=== PATIENT | female | born 1965 | race Caucasian/White ===

== ENCOUNTER 2024-10-06 04:07 | Observation (INO) ==
[2024-10-06] MEDS: MAGNESIUM SULFATE 50% INJ VIAL 2 G in NS 100 ML IV 100 ML IV PRN (04:30)
[2024-10-06] MEDS: SOLU-Medrol 125 MG VIAL IVP ONE (04:30)
[2024-10-06] MEDS: DUONEB 0.5 MG/3 MG (3 mL) NEB ONE ×3 (04:31→05:35)
[2024-10-06] MEDS: ROBITUSSIN DM PO ONE (04:43)
[2024-10-06] MEDS: TESSALON PERLES PO ONE ×2 (04:43→09:43)
--- NOTE | 2024-10-06 04:48 | RAD ---
PROCEDURE: Chest X-ray 1 View. HISTORY: coughing; . TECHNIQUE: AP view. COMPARISON: None . TECHNICAL QUALITY: Satisfactory. FINDINGS: Normal-sized heart with previous sternotomy and pacemaker on the left. Mediastinum and hilar regions show no masses or lymphadenopathy. Normal central vascularity. No pulmonary consolidation, masses, pleural fluid, or pneumothorax. No acute bony abnormality. IMPRESSION: No evidence of active cardiopulmonary disease. THIS IS AN ELECTRONICALLY VERIFIED FINAL REPORT 10/06/2024 4:44 AM - Electronically signed by Gonzalo Baxter MD
--- NOTE | 2024-10-06 05:16 | DR.SOBA ---
HPI Time Seen Time Seen by Provider: 10/06/24 04:19 Primary Care Physician Primary Care Physician: OLI HPI Comment HPI Comment: Pt was seen yesterday for shortness of breath .Was diagnosed with COPD exacerbation .Was given steroids, zithromax and was advised to use albuterol inhaler at least 3 x per day .Pt returns this morning that she could not find her inhaler. She was unable to have her prescription filled .Her cough worsened and she began to experience wheezing and increased shortness of breath and return back to the ER Has no fever or chills Complaints Chief Complaint Doctors Comments: SHORTNESS OF BREATH Chief Complaint:: PATIENT C/O SHORTNESS OF BREATH. PATIENT STATES SHE HAS HAD COUGH AND CONGESTIONS FOR THE PAST FEW DAYS. PATIENT ALSO STATES SHE HAS HAD RICKEY RRHEA. PATIENT WAS RECENTLY SEEN IN ED FOR SME SYMPTOMS. TONIGHT SHE IS HAVING INCREASINGLY SHORTNESS OF BREATH. COVID-19 Coronavirus risk:travel/contact w/high risk person: No Has patient experienced Coronavirus symptoms: No Coronavirus symptoms experienced: Coughing and Shortness of Breath Reviewed Nurses Notes Reviewed: Yes Source History Provided: Patient Mode of Arrival Mode of Arrival: Ambulatory Timing Onset of Chief Complaint: 10/04/24 PMH PMH Past Medical History: Yes Past Medical History: CVA, Hypertension and MA Past Surgical History: Yes Surgical History: Angioplasty/Stents and Past Surgical History Comment: PACE [employer]ER Family History History of Family Medical Conditions: Yes Family Medical History: Diabetes Mellitus and MA Social History Does patient currently use any type of tobacco product: Yes Have you used tobacco products in the last 12 months: Yes Type of Tobacco Use: Cigarettes Does any household member use tobacco: Yes Alcohol Use: None Do you use any recreational Drugs:: Yes (marijuana) Lives With: Family Lives Where: Home Travel Risk Coronavirus risk:travel/contact w/high risk person: No Has patient experienced Coronavirus symptoms: No Infectious screening In the last 2 months have you had wt loss of >10#?: NO Have you had fever, night sweats or hemotysis?: No Have you traveled outside the country in the last 6 months?: No Isolation: Standard ROS Review of Systems Constitutional: Fatigue Eyes: No Symptoms Reported ENTM: No Symptoms Reported Respiratoy: Non-Productive Cough and Short of Breath Cardiovascular: No Symptoms Reported Gastrointestinal/Abdominal: No Symptoms Reported Genitourinary: No Symptoms Reported Neurological: No Symptoms Reported Musculoskeletal: No Symptoms Reported Integumentary: No Symptoms Reported Hematologic/Lymphatic: No Symptoms Reported PE Vital Signs Vitals: Vital Signs Temperature 97.5 F Pulse Rate 93 Pulse Rate 83 Pulse Rate 81 Pulse Rate 79 Pulse Rate 83 Pulse Rate 85 Pulse Rate 94 Pulse Rate 83 Pulse Rate 100 Pulse Rate 102 Respiratory Rate 44 Respiratory Rate 33 Respiratory Rate 36 Respiratory Rate 26 Respiratory Rate 25 Respiratory Rate 43 Respiratory Rate 45 Respiratory Rate 35 Respiratory Rate 28 Blood Pressure 162/77 Blood Pressure 171/84 Blood Pressure 155/83 Blood Pressure 111/86 Blood Pressure 186/103 O2 Sat by Pulse Oximetry 93 O2 Sat by Pulse Oximetry 100 O2 Sat by Pulse Oximetry 92 O2 Sat by Pulse Oximetry 94 O2 Sat by Pulse Oximetry 94 O2 Sat by Pulse Oximetry 94 O2 Sat by Pulse Oximetry 98 O2 Sat by Pulse Oximetry 98 O2 Sat by Pulse Oximetry 94 O2 Sat by Pulse Oximetry 95 General Limitations: No Limitations General Appearance: Alert, Anxious and In Distress Head Head Exam: Normal Inspection, Atraumatic and Normocephalic Eyes Eye exam: Normal Appearance, PERRL and EOMI ENT ENT Exam: Mucous Membranes Moist Neck Neck Exam: Normal Inspection Respiratory Respiratory Exam: Normal Lung Sounds Bilat and Prolonged Expiratory Phase Respiratory Exam: Bilateral: Wheezing Cardiovascular Cardiovascular Exam: +S1 and +S2 Abdominal Exam Abdominal Exam: Normal Inspection, Normal Bowel Sounds and Soft Extremities Extremities Exam: Normal Inspection Back Back Exam: Normal Inspection Neurologic Neurological Exam: Alert Skin Skin Exam: Normal Color MDM Additional Information Obtained Additional Information Obtained From: Old Records Differential Diagnosis Differential Diagnosis: Pneumonia Differential Diagnosis Comment:: copd exacerbation COURSE Treatment Treatment: duoneb,IV magnesium sulphate , tessalon perle ,robitussin DM ,IV solumederol cxr Reevaluation 1st: Unchanged ROR Labs Reviewed 10/06/24 06:44 10/06/24 06:44 XRAY X-ray Results: no pneumonia Opioid Opioid Risk Tool Age (Justin box if 16-45): No History of Preadolescent Sexual Abuse: No Total: 0 Total Score Risk Category: Low Risk Copyright: Denny ESPINOSA predicting aberrant behaviors Discharge Plan Diagnosis Discharge Problem: Acute exacerbation of chronic obstructive pulmonary disease, Tobacco user Discharge Plan Patient Disposition: 09 ADMITTED INPATIENT Condition: Stable Prescriptions: No Action azithromycin [Zithromax] 250 mg tablet 250 mg PO QDAY 4 Days Qty: 4 0RF benzonatate 100 mg capsule 100 mg PO TID Qty: 30 0RF prednisone 20 mg tablet 40 mg PO QDAY Qty: 10 0RF Health Concerns: Post Hospitalization: new medications and changes needed to prevent readmission or further decline. Pt educated and given instructions on all concerns. Plan of Treatment: Continue with present treatment and follow up plan. Pt is to keep follow up appointment as instructed and take medications as ordered. Orders to Discharge Patient Discharge Orders: Transfer (Routine); Ordered 10/06/24 Ordered By: Tiago Mann Follow ups/Referrals Follow ups/Referrals: [facility],None [Primary Care Provider] - 3 days Instructions Stand Alone Forms: Find Help Web Site, Post Hospital Follow Up Care ADDITIONAL NOTES Additional Notes Additional Notes: continued to wheeze with shortness of breath oxygen sat over 95% room air CXR no pneumonia ,had IV Solumederol 125 mg ,IV magnesium sulphate and neb treatment with duoneb x 2 some improvement but not major .spoke with Dr Willoughby .Agreed to admit patient
[2024-10-06 06:54] LABS: BASOPHILS % (AUTO) 0.4 % (0.2-1.0); EOSINOPHILS % (AUTO) 0.1 % (0.9-2.9); HEMATOCRIT 40.5 % (36.0-47.0); HEMOGLOBIN 14.3 g/dL (12.0-16.0); LYMPHOCYTES # (AUTO) 0.7 X10^3/uL (1.3-2.9); LYMPHOCYTES % (AUTO) 12.5 % (21.0-51.0); MEAN CORPUSCULAR HEMOGLOBIN 32.9 pg (27.0-34.0); MEAN CORPUSCULAR HGB CONC 35.2 g/dL (33.0-35.0); MEAN CORPUSCULAR VOLUME 93.3 fL (80.0-100.0); MEAN PLATELET VOLUME 7.3 fL (7.4-11.0); MONOCYTES # (AUTO) 0.1 x10^3/uL (0.3-0.8); MONOCYTES % (AUTO) 1.9 % (0.0-13.0); NEUTROPHILS # (AUTO) 4.4 x10^3/uL (2.2-4.8); NEUTROPHILS % (AUTO) 85.1 % (42.0-75.0); PLATELET COUNT 189 X10^3/uL (150.0-450.0); RED BLOOD COUNT 4.34 X10^6/uL (3.5-5.4); WHITE BLOOD COUNT 5.2 X10^3/uL (3.6-10.0)
[2024-10-06 07:07] LABS: ALANINE AMINOTRANSFERASE 23 Units/L (12-78); ALBUMIN 3.2 g/dL (3.4-5.0); ALKALINE PHOSPHATASE 145 Units/L (46-116); ASPARTATE AMINO TRANSFERASE 38 Units/L (15-37); BLOOD UREA NITROGEN 7 mg/dL (7-18); CALCIUM 8.1 mg/dL (8.5-10.1); CHLORIDE 102 mmol/L (98-107); COR CA(FOR HYPOALB) 8.7 mg/dL (8.5-10.1); COR NA(FOR HYPERGLY) 140 mmol/L (136-145); CREATININE 0.89 mg/dL (0.55-1.02); GLUCOSE 152 mg/dL (65-99); SODIUM 139 mmol/L (136-145); eGFR NON BLACK RACES > 60 (>60)
[2024-10-06 07:08] LABS: POTASSIUM 2.9 mmol/L (3.5-5.1)
[2024-10-06] MEDS: K-DUR TAB 20 MEQ PO ONE (07:14)
[2024-10-06] MEDS: POTASSIUM CHLORIDE LIQ PO ONE (07:20)
[2024-10-06] MEDS: POTASSIUM CHLORIDE LIQ ONE (09:43)
[2024-10-06] MEDS: ROBITUSSIN DM ONE (09:43)
[2024-10-06] MEDS ORDERED: NS 250 ML IV 25 ML IV PRN (09:44)
[2024-10-06 09:50] LABS: ABG BASE EXCESS -1.2 mmol/L (-2.0-2.0); ABG HCO3 22.6 mmol/L (22-26)
[2024-10-06] MEDS: PULMICORT NEB TX 0.5 MG NEB SCH (10:02)
[2024-10-06] MEDS: DUONEB 0.5 MG/3 MG (3 mL) NEB SCH (10:02)
[2024-10-06 10:22] VITALS: BMI 21.9
[2024-10-06] MEDS: SOLU-Medrol 125 MG VIAL IVP SCH (10:24)
[2024-10-06] MEDS: ROCEPHIN VIAL 1 GRAM 1 G in NS 100 ML IV 100 ML IV SCH (10:40)
[2024-10-06 12:10] LABS: INR 4.21 (0.8-1.3)
[2024-10-06 13:19] LABS: BLOOD UREA NITROGEN 6 mg/dL (7-18); CALCIUM 7.9 mg/dL (8.5-10.1); CARBON DIOXIDE 23.9 mmol/L (21-32); CHLORIDE 101 mmol/L (98-107); COR NA(FOR HYPERGLY) 140 mmol/L (136-145); CREATININE 1.11 mg/dL (0.55-1.02); GLUCOSE 279 mg/dL (65-99); POTASSIUM 3.7 mmol/L (3.5-5.1); SODIUM 136 mmol/L (136-145); eGFR NON BLACK RACES 53 (>60)
[2024-10-06] MEDS: TESSALON PERLES PO SCH (14:10)
[2024-10-07 06:26] LABS: BASOPHILS % (AUTO) 0.4 % (0.2-1.0); EOSINOPHILS % (AUTO) 0.1 % (0.9-2.9); HEMATOCRIT 40.6 % (36.0-47.0); HEMOGLOBIN 13.9 g/dL (12.0-16.0); LYMPHOCYTES # (AUTO) 0.6 X10^3/uL (1.3-2.9); LYMPHOCYTES % (AUTO) 5.6 % (21.0-51.0); MEAN CORPUSCULAR HEMOGLOBIN 32.3 pg (27.0-34.0); MEAN CORPUSCULAR HGB CONC 34.2 g/dL (33.0-35.0); MEAN CORPUSCULAR VOLUME 94.5 fL (80.0-100.0); MEAN PLATELET VOLUME 7.9 fL (7.4-11.0); MONOCYTES # (AUTO) 0.2 x10^3/uL (0.3-0.8); MONOCYTES % (AUTO) 2.1 % (0.0-13.0); NEUTROPHILS # (AUTO) 9.8 x10^3/uL (2.2-4.8); NEUTROPHILS % (AUTO) 91.8 % (42.0-75.0); PLATELET COUNT 218 X10^3/uL (150.0-450.0); RED CELL DISTRIBUTION WIDTH 15.2 % (11.6-16.5); WHITE BLOOD COUNT 10.7 X10^3/uL (3.6-10.0)
[2024-10-07 07:09] LABS: PLATELET MORPHOLOGY COMMENT NORMAL (NORMAL)
[2024-10-07 07:11] LABS: ALANINE AMINOTRANSFERASE 21 Units/L (12-78); ALKALINE PHOSPHATASE 123 Units/L (46-116); ASPARTATE AMINO TRANSFERASE 28 Units/L (15-37); BLOOD UREA NITROGEN 8 mg/dL (7-18); CALCIUM 8.5 mg/dL (8.5-10.1); CARBON DIOXIDE 26.2 mmol/L (21-32); CHLORIDE 103 mmol/L (98-107); COR CA(FOR HYPOALB) 9.3 mg/dL (8.5-10.1); COR NA(FOR HYPERGLY) 140 mmol/L (136-145); GLUCOSE 142 mg/dL (65-99); MAGNESIUM 1.8 mg/dL (2.0-2.9); POTASSIUM 3.3 mmol/L (3.5-5.1); SODIUM 139 mmol/L (136-145); TOTAL PROTEIN 6.5 g/dL (6.4-8.2); eGFR NON BLACK RACES > 60 (>60)
[2024-10-07 16:30] LABS: INR 1.46 (0.8-1.3)
[2024-10-07] MEDS ORDERED: ZOFRAN INJ 4 MG VIAL IVP PRN (17:51)
[2024-10-07] MEDS ORDERED: COUMADIN TAB 7.5 MG (JANTOVEN) PO SCH (21:00)
[2024-10-08 00:45] VITALS: RESP 21
[2024-10-08 04:22] VITALS: BP 133/79; PULSE 80; TEMP 98.1; O2SAT 95
[2024-10-08 06:39] LABS: BASOPHILS % (AUTO) 0.1 % (0.2-1.0); HEMATOCRIT 40.8 % (36.0-47.0); HEMOGLOBIN 13.9 g/dL (12.0-16.0); LYMPHOCYTES # (AUTO) 1.8 X10^3/uL (1.3-2.9); LYMPHOCYTES % (AUTO) 11.5 % (21.0-51.0); MEAN CORPUSCULAR HEMOGLOBIN 32.3 pg (27.0-34.0); MEAN CORPUSCULAR HGB CONC 34.1 g/dL (33.0-35.0); MEAN CORPUSCULAR VOLUME 94.7 fL (80.0-100.0); MEAN PLATELET VOLUME 8.1 fL (7.4-11.0); MONOCYTES # (AUTO) 0.5 x10^3/uL (0.3-0.8); MONOCYTES % (AUTO) 3.3 % (0.0-13.0); NEUTROPHILS # (AUTO) 13.1 x10^3/uL (2.2-4.8); NEUTROPHILS % (AUTO) 85.1 % (42.0-75.0); PLATELET COUNT 215 X10^3/uL (150.0-450.0); RED BLOOD COUNT 4.31 X10^6/uL (3.5-5.4); RED CELL DISTRIBUTION WIDTH 15.5 % (11.6-16.5); WHITE BLOOD COUNT 15.4 X10^3/uL (3.6-10.0)
[2024-10-08 06:48] LABS: INR 1.09 (0.8-1.3)
[2024-10-08 07:11] LABS: ALANINE AMINOTRANSFERASE 27 Units/L (12-78); ALKALINE PHOSPHATASE 114 Units/L (46-116); ASPARTATE AMINO TRANSFERASE 34 Units/L (15-37); BLOOD UREA NITROGEN 15 mg/dL (7-18); CALCIUM 8.4 mg/dL (8.5-10.1); CARBON DIOXIDE 26.2 mmol/L (21-32); CHLORIDE 102 mmol/L (98-107); COR CA(FOR HYPOALB) 9.2 mg/dL (8.5-10.1); CREATININE 0.77 mg/dL (0.55-1.02); GLUCOSE 104 mg/dL (65-99); MAGNESIUM 1.8 mg/dL (2.0-2.9); POTASSIUM 3.3 mmol/L (3.5-5.1); SODIUM 139 mmol/L (136-145); TOTAL PROTEIN 6.6 g/dL (6.4-8.2); eGFR NON BLACK RACES > 60 (>60)
[2024-10-08] MEDS: ROBITUSSIN DM PO PRN (07:12)
[2024-10-08] MEDS ORDERED: SOLU-Medrol 40 MG VIAL IVP SCH (09:00)
== END 2024-10-08 07:50 | disposition left against medical advice (07) ==
LOC: ER 04:07 → MED/SURG 04:07
PROVIDERS: ADMIT Internal Medicine; ATTEND Internal Medicine
DX: Z79.01 Long term (current) use of anticoagulants; R73.09 Other abnormal glucose; R79.1 Abnormal coagulation profile; I10 Essential (primary) hypertension; J44.1 Chronic obstructive pulmonary disease with (acute) exacerbation; R05.8 Other specified cough; Z72.0 Tobacco use; E83.42 Hypomagnesemia; E87.6 Hypokalemia; Z95.0 Presence of cardiac pacemaker; Z53.29 Procedure and treatment not carried out because of patient's decision for other reasons; R06.02 Shortness of breath